=== PATIENT | male | born 1970 | race Caucasian/White ===

== ENCOUNTER 2017-08-02 12:21 | Emergency (ER) | payer BC ==
[~2017-08-02] VITALS: Ht 180.3 cm; Wt 96.2 kg
[2017-08-02] MEDS ORDERED: HUMALOG100 UNIT/1 SUBQ (12:29)
[2017-08-02] MEDS ORDERED: JANUMET 50-1,01 EACH PO (12:29)
[2017-08-02] MEDS ORDERED: LANTUS100 UNIT/M SUBQ (12:30)
[2017-08-02] MEDS ORDERED: HYDROCODONE-AP1 EAC6 PO (13:10)
[2017-08-02] MEDS ORDERED: CRUTCHES MISCELL (13:10)
[2017-08-02 13:25] VITALS: BP 136/83
== END 2017-08-02 13:29 | disposition home or self-care (01) ==
LOC: ER 12:21
DX: S83.8X1A Sprain of other specified parts of right knee, initial encounter (principal); E11.9 Type 2 diabetes mellitus without complications; Z79.4 Long term (current) use of insulin; W18.39XA Other fall on same level, initial encounter; Y93.89 Activity, other specified; Y92.89 Other specified places as the place of occurrence of the external cause; Y99.8 Other external cause status